=== PATIENT | female | born 1980 | race Caucasian/White ===

== ENCOUNTER 2019-10-23 08:45 | Outpatient (CLI) | payer OTHER, SELFPAY ==
[2019-10-23 09:17] LABS: Basophils Absolute Auto 0.1 K/mm3 (0.0-0.1); Basophils Percent Auto 0.5 % (0.2-1.2); Eosinophils Absolute Auto 0.1 K/mm3 (0-0.3); Eosinophils Percent Auto 0.6 % (0-4.4); Hematocrit 38.5 % (37.0-47.0); Hemoglobin 13.3 g/dL (12.0-15.0); Immature Granulocyte Absolute 0.04 K/mm3 (0.00-0.031); Immature Granulocyte Percent A 0.3 % (0-0.5); Lymphocytes Absolute Auto 1.26 K/mm3 (0.9-3.2); Mean Corpuscular HGB Conc 34.5 g/dl (32-36); Mean Corpuscular Hemoglobin 32.3 pg (26-34); Mean Corpuscular Volume 93.4 fl (80-100); Mean Platelet Volume 11.2 fl (7.4-10.4); Monocytes Absolute Auto 0.8 K/mm3 (0.1-0.6); Monocytes Percent Auto 6.3 % (2.6-8.5); Neutrophils Absolute Auto 10.3 K/mm3 (1.3-6.7); Neutrophils Percent Auto 82.3 % (45.5-73.1); Platelet Count Result 216 k/mm3 (150-375); Red Blood Count 4.12 M/mm3 (4.2-5.4); Red Cell Distribution Width 11.8 % (11.5-14.5); White Blood Count 12.5 K/mm3 (4.5-10.0)
[2019-10-23 09:22] LABS: Add Urine Microscopic? YES; Appearance Urine Cloudy (Clear); Bacteria Urine Trace /hpf; Bilirubin Urine Negative (Negative); Blood Urine 2+ (Negative); Color Urine Yellow (Yellow); Glucose Urine UA Negative (Negative); Ketones Urine Negative (Negative); Leukocyte Esterase Ur 3+ LEU/UL (Negative); Mucus Urine Rare /lpf; Nitrate Urine Negative (Negative); Protein Urine 1+ mg/dL (Negative); RBC Urine 51-75 /hpf (0-2); Squamous Epithelial Cell Urine Many /hpf (Few); Urobilinogen Urine Negative mg/dL (<2.0); WBC Urine >75 /hpf
[2019-10-23 09:28] LABS: Alanine Aminotransferase 14 U/L (4-35); Albumin Level 4.5 g/dL (3.5-5.1); Alkaline Phosphatase 49 U/L (38-126); Aspartate Amino Transferase 23 U/L (14-36); Bilirubin,Total 1.5 mg/dL (0.2-1.3); Blood Urea Nitrogen 8 mg/dL (7-17); Calcium 9.3 mg/dL (8.4-10.2); Carbon Dioxide 25 mmol/L (22-30); Chloride 104 mmol/L (98-107); Estimated Glomerular Filt Rate > 60; Glucose 106 mg/dL (65-105); Sodium 139 mmol/L (137-145)
[2019-10-23 09:45] LABS: Beta HCG Quantitative < 2.39 mIU/ML
== END 2019-10-23 08:46 | disposition home or self-care (01) ==
LOC: ANHLAB 08:48
PROVIDERS: PCP Internal Medicine; Visit Provider Internal Medicine
DX: R10.9 Unspecified abdominal pain (principal)
CPT/HCPCS: 36415; 80053; 81001; 84702; 85025; 87077; 87086; 87088; 87186

== ENCOUNTER 2020-02-05 07:30 | Outpatient (CLI) | payer OTHER, SELFPAY ==
[2020-02-05 08:12] LABS: Basophils Absolute Auto 0.1 K/mm3 (0.0-0.1); Eosinophils Absolute Auto 0.2 K/mm3 (0-0.3); Eosinophils Percent Auto 2.5 % (0-4.4); Hematocrit 40.8 % (37.0-47.0); Hemoglobin 13.9 g/dL (12.0-15.0); Immature Granulocyte Absolute 0.02 K/mm3 (0.00-0.031); Immature Granulocyte Percent A 0.3 % (0-0.5); Lymphocytes Absolute Auto 2.24 K/mm3 (0.9-3.2); Lymphocytes Percent Auto 37.3 % (18.3-44.2); Mean Corpuscular HGB Conc 34.1 g/dl (32-36); Mean Corpuscular Hemoglobin 31.2 pg (26-34); Mean Corpuscular Volume 91.7 fl (80-100); Mean Platelet Volume 10.7 fl (7.4-10.4); Monocytes Absolute Auto 0.5 K/mm3 (0.1-0.6); Monocytes Percent Auto 7.5 % (2.6-8.5); Neutrophils Absolute Auto 3.1 K/mm3 (1.3-6.7); Neutrophils Percent Auto 51.4 % (45.5-73.1); Platelet Count Result 237 k/mm3 (150-375); Red Blood Count 4.45 M/mm3 (4.2-5.4); Red Cell Distribution Width 11.9 % (11.5-14.5)
[2020-02-05 08:18] LABS: Add Urine Microscopic? YES; Appearance Urine Clear (Clear); Bacteria Urine Trace /hpf; Bilirubin Urine Negative (Negative); Blood Urine Negative (Negative); Color Urine Yellow (Yellow); Glucose Urine UA Negative (Negative); Ketones Urine Negative (Negative); Leukocyte Esterase Ur Trace LEU/UL (NEGATIVE); Mucus Urine Rare /lpf; Nitrate Urine Negative (Negative); Protein Urine Negative (Negative); RBC Urine 0-2 /hpf (0-2); Specific Grav Ur 1.012 (1.001-1.035); Squamous Epithelial Cell Urine Rare /hpf (Few); Transitional Epi Cells Urine Rare /hpf (None Seen); Urobilinogen Urine Negative mg/dL (<2.0)
[2020-02-05 08:30] LABS: Alanine Aminotransferase 13 U/L (4-35); Albumin Level 4.6 g/dL (3.5-5.1); Alkaline Phosphatase 37 U/L (38-126); Anion Gap 7 mmol/L (8-16); Aspartate Amino Transferase 22 U/L (14-36); Bilirubin,Total 1.2 mg/dL (0.2-1.3); Blood Urea Nitrogen 8 mg/dL (7-17); Calcium 9.3 mg/dL (8.4-10.2); Carbon Dioxide 27 mmol/L (22-30); Chloride 106 mmol/L (98-107); Cholesterol 147 mg/dL (0-200); Estimated Glomerular Filt Rate > 60; Glucose 100 mg/dL (65-105); HDL Direct 53 mg/dL; Potassium 4.5 mmol/L (3.4-5.0); Sodium 140 mmol/L (137-145); Triglycerides 54 mg/dL (<150)
[2020-02-05 08:41] LABS: LDL Cholesterol Direct 72 mg/dL
[2020-02-05 08:59] LABS: Thyroid Stimulating Hormone 0.587 uIU/mL (0.465-4.680)
[2020-02-05 12:33] LABS: Folic Acid 6.8 ng/mL (2.76->20)
== END 2020-02-05 07:31 | disposition home or self-care (01) ==
PROVIDERS: PCP Internal Medicine; Visit Provider Internal Medicine
DX: Z00.00 Encounter for general adult medical examination without abnormal findings (principal); R53.83 Other fatigue
CPT/HCPCS: 36415; 80053; 80061; 81001; 82607; 82746; 84443; 85025

== ENCOUNTER → 2021-04-19 01:29 | Outpatient (CLI) | payer OTHER, SELFPAY ==
[2021-04-20 13:55] LABS: SARS-CoV-2 RNA PCR Positive
== END ==
PROVIDERS: PCP Internal Medicine; Visit Provider Physician Assistant
DX: R68.89 Other general symptoms and signs (principal); Z20.822 Contact with and (suspected) exposure to COVID-19
CPT/HCPCS: C9803; U0003; U0005

== ENCOUNTER 2024-10-25 08:45 | Outpatient (CLI) | payer OTHER, SELFPAY ==
--- NOTE | ~2024-10-25 | MMUS_ITS ---
EXAMINATION: MM diag main implant BI w gloria, US breast RT limited HISTORY: Right breast mass TECHNIQUE: 3-D tomosynthesis images of the breasts were performed and synthetic 2-D images were gener ated. CAD analysis was submitted and interpreted. High resolution limited right breast ultrasound was performed. COMPARISON: None BREAST PARENCHYMAL COMPOSITION:Dense: The breasts are extremely dense, which lowers the sensitivity o f mammography. FINDINGS: MAMMOGRAPHIC FINDINGS: No distinct parenchymal abnormality seen mammographically. No mass lesion or distortion are evident. No suspicious microcalcification. ULTRASOUND: At the 7:00 position right breast, near the nipple, there is a 1.3 x 1.4 x 0.8 cm mildly irregular, w ider than tall hypoechoic solid mass. There is focal internal vascularity. IMPRESSION: 1.3 x 1.4 x 0.8 cm indeterminate mass at 7:00 position right breast near the nipple seen sonographic ally. Ultrasound-guided biopsy is recommended to establish a histologic diagnosis. BI-RADS category 4, suspicious findings. Reviewed, dictated and finalized at [facility]. IMPRESSION: 1.3 x 1.4 x 0.8 cm indeterminate mass at 7:00 position right breast near the n ipple seen sonographically. Ultrasound-guided biopsy is recommended to establis h a histologic diagnosis. BI-RADS category 4, suspicious findings.
--- OUTSIDE RECORDS SUMMARY | 2024-10-25 08:50 | XMS_ITS | Data Portability ---
Author Organization [facility] Address [address] [place] [address] [place] [address] Care Team Providers Care Pet Feeder Name Role Phone TAMERA MARIE Primary Care Provider Assessment Encounter Date Assessment Date Assessment LastModified by Organization Details LastModified Time 11/25/2022 11/25/2022 Annual gynecological exam performed. Patient will come back in a year unless there are new symptoms. [email or web address] Not available 11/25/2022 09:24:29 Plan of Treatment Reminders Order Date Submit Date Provider Last Modified By Organization Details Last Modified Time Details Appointments None recorded. Lab None recorded. Referral None recorded. Procedures None recorded. Surgeries None recorded. Imaging MAMMO, diagnostic , digital, bilateral - Right breast mass (1 cm) noted at 9 o'clock position near areola 2024 025 [facility], [address], [address], [place], [address], 5 04:11:56 MAMMO, screening, bilateral 2022 023 [facility], [address], [place], [address], 3 14:15:46 Medication Orders None recorded. Patient TargetsNo targets recorded. Patient InstructionsNo instructions recorded. Reason for Referral None Reported. Procedures Surgical History Date Name Laterality Status Provider Name and Address Organization Details Recorded Time 09/16/19 25 excision of melanoma completed CYNDI BLACKMAN NP [address] [place], [address], [facility] 10/15/2024 12:00:54 04/17/19 19 Date of Last Pap Smear completed Andria Parra [facility] 10/15/2024 11:07:28 04/17/19 16 excision of melanoma completed [facility] 11/25/2022 09:28:45 04/17/19 08 augmentation of bilateral breasts completed [facility] 11/25/2022 09:28:31 Imaging Results None recorded. Procedure Notes None recorded. Medical Equipment None Reported. Allergies Allergen ID Allergen Name Allergen Category Reaction Reaction Severity Criticality Documentation Date Start Date Code Code System Note Provider Name and Address Organization Details Recorded Time 03380 Non-stero idal anti-infl ammatory agent (product) medicatio n eye swelling severe Not available 11/25/20222005 33346 005 SNOMED Andria Parra abelardo [facility] 5 11:07:27 58049 lidocaine medicatio n Not available Not available Not available 11/25/20222015 6387 RxNorm Other react ions and sever ities : 'Itch ing - Moder ate', and 'Swel ling - Moder ate'. Andria Parra abelardo [facility] 5 11:07:27 Medications Name Sig Start Date Stop Date Status Note LastModified by Organization Details LastModified Time azithromyci n 250 mg tablet TAKE 2 TABLETS BY MOUTH DAILY FOR 1 DAY THEN TAKE 1 TABLET BY MOUTH DAILY FOR 4 DAYS 10/15 completed Not Available Not Available Not Available acetaminoph en 300 mg-codeine 30 mg tablet TAKE 1 TABLET BY MOUTH EVERY 8 HOURS NEEDED FOR PAIN 10/15 completed Not Available Not Available Not Available tretinoin 0.05 % topical cream 11/25 completed Not Available Not Available Not Available terbinafine HCl 250 mg tablet TAKE 1 TABLET BY MOUTH DAILY FOR 1 WEEK OF THE MONTH EVERY MONTH FOR 12 MONTHS active Not Available Not Available No t Available fluorometho lone 0.1 % eye drops,suspe nsion 11/25 completed Not Available Not Available Not Available azelastine 137 mcg (0.1 %) nasal spray USE 2 SPRAYS IN EACH NOSTRIL EVERY 12 HOURS REPLACING ASTEPRO 11/25 completed Not Available Not Available Not Available methylpredn isolone 4 mg tablets in a dose pack FOLLOW PACKAGE DIRECTION S 10/15 completed Not Available Not Available Not Available cyclobenzap rine 5 mg tablet TAKE 1 TABLET BY MOUTH THREE TIMES DAILY NEEDED FOR MUSCLE SPASM 10/15 completed Not Available Not Available Not Available 05/06 (28) 1 mg-20 mcg (21)/75 mg (7) tablet 11/25 completed Not Available Not Available Not Available Zyrtec active Not Available Not Availa ble Not Available Jublia 10 % topical solution with applicator APPLY TOPICALLY TO THE AFFECTED AREA DAILY active Not Available Not Available No t Available Vitals Date Recorded Body height Body mass index (BMI) Body weight Systolic And Diastolic Provider Name and Address Organization Details Last Updated DateTime 10/15/2024 177.8 cm 20.9 kg/m2 44167.77 g 127/82 mm[Hg] Andria Parra [facility] 10/15/2024 11:14:19 Date Recorded Body height Body mass index (BMI) Body weight Systolic And Diastolic Provider Name and Address Organization Details Last Updated DateTime 11/25/2022 177.8 cm 23 kg/m2 82510.78 g 102/62 mm[Hg] Shirlene Rogers [facility] 11/25/2022 09:24:39 Social History Question Answer Notes LastModified by Ortho[employer] Details LastModified Time Tobacco Smoking Status Never Smoker Shirlene Rogers [facility] 11/25/2022 09:28:15 Have You Ever Been Counseled For Unhealthy Alcohol Use? No Information not available 11/25/2022 Has Tobacco Cessation Counseling Been Provided? No Information not available 11/25/2022 Sex: Unknown Functional Status Question Answer Note LastModified by [employer] Details LastModified Time Do you use any illicit or recreational drugs? No Information not available 11/25/2022 Do you or have you ever used any other forms of tobacco or nicotine? No Information not available 11/25/2022 What is your level of alcohol consumption? Occasional Information not available 11/25/2022 Mental Status None recorded. Family History Relationship Description Onset Age of this Age Resolved Age Notes LastModified by Organization Details LastModified Time Maternal Grandmother Diabetes mellitus [email or web address] Not available 2024 11:07:27 Mother Malignant tumor of breast [email or web address] Not available 2024 11:07:28 Mother Malignant tumor of breast 54 56 [email or web address] Not available 2024 11:07:28 Sister Malignant tumor of cervix [email or web address] Not available 2024 11:07:28 Sister Disorder of nervous system 29 Not available 2024 11:07:28 Medical History Condition Response Cancer Y Gynecological History Statement/Question Response Abnormal Pap N Date of Last Mammogram Flow Heavy Date of LMP 10/03/2024 On BCP's at Conception? N Was last menstrual period normal Y STIs/STDs N HPV Vaccine N Duration of Flow (days) 4 Current Control Method None Age at First Child 28 Are cycles usually normal Y Frequency of Cycle (Q days) 29 Sexually Active? Y Menses Monthly Y Age of first menstrual cycle 17 Date of Last Pap Smear 04/17/2018 Sexual Problems? N LMP Definite N Obstetrics History GPAL:G 3 P 2 0 1 2 Type Value Full Term 2 Induced 1 Living 2 Total 3 Past Encounters Encounter ID Performer Location Encounter Start Date Encounter Closed Date Diagnosis/Indication Diagnosis SNOMED-CT Code Diagnosis ICD10 Code Diagnosis Note [id number] Lucretia Auguste [facility] [address] [address] 11/25/2022 09:17:31 11/25/2022 14:15:46 Gynecologic examination 11424561 Z01.419 Suggested Calcium with Vitamin D 1200-1500m g daily. Patient advised to get an annual flu shot in the fall and she could obtain at [facility] or [facility] clinic. Also to obtain TDap vaccinatio n if you have not had one in the last 10 years. Recommend yearly mammograms . Encouraged monthly self breast exams. Encourage safe sexual practices, to use condoms and limit partners if not already in a monogamous relationsh ip. Engage in daily exercise of low impact aerobic exercise 45-60 minutes 4-5 times weekly. Avoid tobacco and illicit drugs as well as using moderation with alcohol intake less than 1-2 8 oz beverages daily. This lifestyle behavior pattern will lead to less health conditions and longer life span. If BMI greater than 25 weight watchers or dietary consult advised. All questions have been answered. Patient appears to understand informatio n, but if you have any questions please call or respond to this email.Pap/ hpv sentSTD Screen sentGeneti c Screen discussed & informatio n given.[place] n Screen PCPDexa Screen naRoutine Labs PCPMammo-F amily Hx of breast cancer Screening mammography 24 902944 Z12.31 Consider genetic testing due to first line relative Hx breast cancer (Mother) [facility] [id number] Z30.9 Discussed all control options and pt would like mirena IUD. I have discussed in detail all risks and benefits including risk of infection and perforatio n. She understand s she will need to contact office with next menses or may abstain, complete serum HCG day before placement, if neg can have IUD placed next day. Aware of need to verify with insurance device coverage. Literature given. All questions answered to patient satisfacti on. Also discussed slYND/Nexp lanon/Depo .Informati on givenWill call if wants to pursue with next cycle. [id number] Justino Chand MD [facility] [address] [address] 10/15/2024 11:00:15 10/15/2024 12:05:25 Mass of right breast [id number] [id number] N63.10 We discussed her breast exam findings and pt is counseled. Questions answered.I maging: bilateral diagnostic mammogram ordered; patient to scheduleFH of breast cancer (mother - age 54); BRCA negative per ptPatient advised to perform self-breas t exams and report any changes.FU for [employer] [facility] Concerns Section Related Observation LastModified by Organization Detai ls LastModified Time None Recorded Concern Status LastModified by Organization Details LastModified Time None Recorded Advance Directives Directive None Recorded Payers Insurance Date Sequence Insurance Name Policy Number Policy Kearns Covered Member ID Kearns Member ID Guarantor Name 10/15/2024 1 [facility] [id number] Neelam Becerra [id number] Neelam Becerra 10/14/2024 1 [facility] [id number] Neelam Becerra [id number] Neelam Becerra Notes Date Note Type Note Provider Name and Address Organization Details Recorded Time 11/25/2022 text/html Annual GYNReport ed bypatient.History:no gynecologic complaints Menstrual cycle:Normal menses Urinary symptoms:No hematuria; No incontinence Vulva:No genital lesion Vagina:Normal vaginal discharge Breast:No breast pain; No breast lump; No nipple discharge Current Contraception:Condom s Sexual complaints:No sexual complaints; No pain during intercourse; Normal libido Menopausal Symptoms:No menopausal symptoms; Normal vaginal lubrication Psychological symptoms:No depression; No anxiety; No PMDD Preventive measures:Encourage self breast examination; Encourage regular exercise; Encourage no tobacco use; Encourage regular mammograms starting age 40; Followed with yearly pap smears; Needs to schedule mammogram DARREN Olguin-[facility] [address], [place], [address], [facility] 11/25/2022 14:05:23 10/15/2024 text/html 44 y/o female presents with c/o right breast lump that she noticed Monday.Patient states that the lump is right next to her areola.Patient denies current pain, but states that she had sharp bilateral breast pain a few months ago.Denies nipple discharge or skin changes of breasts.Reports that she recently had melanoma removed from her left thigh. breast cancer - mother diagnosed at age 54 (ductal)Patient states that she is BRCA negativeReports having breast implantsPatient reports that she has not had a mammogram before CYNDI BLACKMAN NP [address], [place], [address], [facility] 10/15/2024 12:05:12 OBGyn Episode Ob Episode Information Episode Created Date Number of Fetuses Patient Bloodtype Patient rh Status Prepregnancy Weight lbs Domestic Partner Domestic Partner Phone Father Name Drywall Taper Status 11/26/19 23 1 CLOSED Fetus Data First Name Last Name Admitted to NICU Weight (g) Sex Living Outcome Pediatric Complications Fetus ID Race Codes Race Delivery Type , Induced Donald Calculation Initial Donald Date Initial Exam Date Initial Exam Provider Initial Ultrasound Date Last Menstrual Period Date Ultra Sound Weeks Gestation 0 Eighteen To Twenty Week Donald Update Ultra Sound Date Fundal Height At Umbil Quickening Date Ultra Sound Latest Weeks Gestation Final Donald Confirmed By Final Donald Confirmed Date Final Donald Date Ultra Sound Latest Days Gestation 0 0 Menstrual History Last Menstrual Date Menses Monthly On Bcp Conception Prior Menses Frequency Hcg Plus Date Menarche Onset Age Delivery Information Delivery Date Delivery Type Labor Anesthesia Weeks Gestation Incision Type Labor Labor Length Hrs Delivered By Post Complications Tubal Sterilization Discharge Date Comments 6 Discharge Information Feeding Method Contraceptive Method Maternal HG B and HCT Levels Ob Episode Information Episode Created Date Number of Fetuses Patient Bloodtype Patient rh Status Prepregnancy Weight lbs Domestic Partner Domestic Partner Phone Father Name Drywall Taper Status 11/26/19 23 1 CLOSED Fetus Data First Name Last Name Admitted to NICU Weight (g) Sex Living Outcome Pediatric Complications Fetus ID Race Codes Race Delivery Type 4535.92 M Full Term [id number] Vaginal Delivery Donald Calculation Initial Donald Date Initial Exam Date Initial Exam Provider Initial Ultrasound Date Last Menstrual Period Date Ultra Sound Weeks Gestation 0 Eighteen To Twenty Week Donald Update Ultra Sound Date Fundal Height At Umbil Quickening Date Ultra Sound Latest Weeks Gestation Final Donald Confirmed By Final Donald Confirmed Date Final Donald Date Ultra Sound Latest Days Gestation 0 0 Menstrual History Last Menstrual Date Menses Monthly On Bcp Conception Prior Menses Frequency Hcg Plus Date Menarche Onset Age Delivery Information Delivery Date Delivery Type Labor Anesthesia Weeks Gestation Incision Type Labor Labor Length Hrs Delivered By Post Complications Tubal Sterilization Discharge Date Comments 0 39 Discharge Information Feeding Method Contraceptive Method Maternal HG B and HCT Levels Ob Episode Information Episode Created Date Number of Fetuses Patient Bloodtype Patient rh Status Prepregnancy Weight lbs Domestic Partner Domestic Partner Phone Father Name Drywall Taper Status 11/26/19 23 1 CLOSED Fetus Data First Name Last Name Admitted to NICU Weight (g) Sex Living Outcome Pediatric Complications Fetus ID Race Codes Race Delivery Type 3175.14 4 M Full Term [id number] Vaginal Delivery Donald Calculation Initial Dnoald Date Initial Exam Date Initial Exam Provider Initial Ultrasound Date Last Menstrual Period Date Ultra Sound Weeks Gestation 0 Eighteen To Twenty Week Donald Update Ultra Sound Date Fundal Height At Umbil Quickening Date Ultra Sound Latest Weeks Gestation Final Donald Confirmed By Final Donadl Confirmed Date Final Donald Date Ultra Sound Latest Days Gestation 0 0 Menstrual History Last Menstrual Date Menses Monthly On Bcp Conception Prior Menses Frequency Hcg Plus Date Menarche Onset Age Delivery Information Delivery Date Delivery Type Labor Anesthesia Weeks Gestation Incision Type Labor Labor Length Hrs Delivered By Post Complications Tubal Sterilization Discharge Date Comments 3 37 Discharge Information Feeding Method Contraceptive Method Maternal HG B and HCT Levels
--- OUTSIDE RECORDS SUMMARY | 2024-10-25 08:50 | XMS_ITS | Clinical Summary ---
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 Gender Identity Not on file Sexual Orientation Not on file Plan of Treatment Health Maintenance Due Date Last Done Comments DTAP/TDAP/TD VACCINES (1 - Tdap) 2000 HEPATITIS B VACCINES (1 of 3 - 19+ 3-dose series) 2000 HPV/Cotest (21-29) 2002 CERVICAL CANCER SCREENING 09/25/2011 HPV/Cotest (30-65) 09/25/2011 PAP SMEAR 09/25/2011 BREAST CANCER SCREENING 2021 INFLUENZA VACCINE (#1) 2024 HPV VACCINES Aged Out No longer eligi ble based on patient's age to complete this topic [place] [address] [place] [id number] Care Teams Watermaster Relationship Specialty Start Date End Date Marcos DO Vahid [address] [facility] [address] [place] [address] PCP - General Internal Medicine 02/14/12
== END 2024-10-25 08:46 | disposition home or self-care (01) ==
LOC: CHSIMG 08:47
PROVIDERS: PCP Internal Medicine; Visit Provider Student in an Organized Health Care Education/Training Program
DX: N63.10 Unspecified lump in the right breast, unspecified quadrant (principal); R92.8 Other abnormal and inconclusive findings on diagnostic imaging of breast
CPT/HCPCS: 76642; 77062; 77066; G0279

== ENCOUNTER 2024-11-05 07:25 | Outpatient (CLI) | payer OTHER, SELFPAY ==
--- NOTE | ~2024-11-05 | MMUS_ITS ---
PROCEDURE: US breast biopsy RT w image, MM post biopsy diagnostic RT CLINICAL HISTORY: 44-year-old female weight indeterminate mass at 7:00 position in the right breast w ho presents for ultrasound-guided core needle biopsy procedure. COMPARISON: 10/25/2024 Following informed consent including risks, benefits, and possible complications, the patient was bro ught to the ultrasound suite. A time-out procedure was performed. A preliminary ultrasound of the ri t breast was performed, redemonstrating solid hypoechoic mass at 7:00, near the nipple. The patient was prepped and draped in the usual sterile fashion. 1% lidocaine was instilled into the subcutaneous tissues. 1% lidocaine with epinephrine was injected into the deep tissues just inferior to the lesion. Approximately 15cc lidocaine was administered. A small skin juliann was made. Multiple co re samples were obtained with a 14-gauge multi pass biopsy needle. A post biopsy metal marker was ntaalia rené at the biopsy site. Postprocedural mammogram of the right breast in craniocaudal and mediolateral projections reveal the post biopsy metal marker in good position. The patient tolerated the procedure well and was without i mmediate postprocedural complications. IMPRESSION: Successful ultrasound guided biopsy of right breast mass. A post biopsy metal marker was placed at the biopsy site, which is seen on postprocedural mammogram. The patient tolerated the procedure well without immediate postprocedure complications. The patient w as given postprocedural instructions and sent home in stable condition. Reviewed, dictated and finalized at location B. IMPRESSION: Successful ultrasound guided biopsy of right breast mass. A post bi opsy metal marker was placed at the biopsy site, which is seen on postprocedura l mammogram. The patient tolerated the procedure well without immediate postprocedure compli cations. The patient was given postprocedural instructions and sent home in sta ble condition.
--- OUTSIDE RECORDS SUMMARY | 2024-11-05 07:28 | XMS_ITS | Clinical Summary ---
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 Gender Identity Not on file Sexual Orientation Not on file Plan of Treatment Health Maintenance Due Date Last Done Comments HPV VACCINES (1 - 3-dose series) 1996 DTAP/TDAP/TD VACCINES (1 - Tdap) 2000 HEPATITIS B VACCINES (1 of 3 - 19+ 3-dose series) 09/15 HPV/Cotest (21-29) 2002 CERVICAL CANCER SCREENING 09/25/2011 HPV/Cotest (30-65) 09/25/2011 PAP SMEAR 09/25/2011 BREAST CANCER SCREENING 2021 INFLUENZA VACCINE (#1) 2024 Insurance Care Teams Oceanic Sciences Professor Relationship Specialty Start Date End Date Vaihd Rodríguez DO [address] [facility] [address] [place] [address] PCP - General Internal Medicine 02/14/12
--- OUTSIDE RECORDS SUMMARY | 2024-11-05 07:28 | XMS_ITS | Data Portability ---
Author Organization [facility] [place] Address [address] [place] [address] [place] [address] Care Team Providers Care Treatment Supervisor Name Role Phone TAMERA MARIE Primary Care [...] 9 o'clock position near areola 2024 025 [facility], [address], [address], [place], [address], 5 13:05:10 MAMMO, screening, bilateral 2022 023 [email or web address] [facility], [address], [place], [address], 3 14:15:46 Medication Orders None recorded. Patient TargetsNo targets recorded. Patient InstructionsNo instructions recorded. Reason for Referral None Reported. Results Created Date Observation Date Name Description Value Unit Range Abnormal Flag Note LastModifiedBy Organization Detail LastModifiedTime 10/26/19 25 10/25/2024 MAMMO , diagn ostic , digit al, bilat eral No observ ation record ed. [email or web address] [facility] [address], [place], [address], 10/29/2024 09:46:03 Result Notes None recorded. Procedures Surgical History Date Name Laterality Status Provider Name and Address Organization Details Recorded Time 09/16/19 25 excision of melanoma completed CYNDI BLACKMAN NP [address], [place], [address], [facility] 10/15/2024 12:00:54 04/17/19 19 Date of Last Pap Smear completed [facility] 10/15/2024 11:07:28 04/17/19 16 excision of melanoma completed [facility] 11/25/2022 09:28:45 04/17/19 08 augmentation of bilateral breasts completed [facility] 11/25/2022 09:28:31 Imaging Results None recorded. Procedure Notes None recorded. Medical Equipment None Reported. Allergies Allergen ID Allergen Name Allergen Category Reaction Reaction Severity Criticality Documentation Date Start Date Code Code System Note Provider Name and Address Organization Details Recorded Time 58985 Non-stero idal anti-infl ammatory agent (product) medicatio n eye swelling severe Not available 11/25/20222005 09178 005 SNOMED Andria zhou [facility] 5 11:07:27 18949 lidocaine medicatio n Not available Not available Not available 11/25/20222015 6387 RxNorm Other react ions and sever ities : 'Itch ing - Moder ate', and 'Swel ling - Moder ate'. Andria zhou [facility] 5 11:07:27 Medications Name Sig Start [...] Updated DateTime 10/15/2024 177.8 cm 20.9 kg/m2 90909.77 g 127/82 mm[Hg] Andria Parra [facility] 10/15/2024 11:14:19 Date Recorded Body height Body mass index (BMI) Body weight Systolic And Diastolic Provider Name and Address Organization Details Last Updated DateTime 11/25/2022 177.8 cm 23 kg/m2 56329.78 g 102/62 mm[Hg] Shirlene Rogers [facility] 11/25/2022 09:24:39 Social History Question Answer Notes LastModified by Organizat ion Details LastModified Time Tobacco Smoking Status Never Smoker Shirlene Rogers [facility], [facility] 11/25/2022 09:28:15 Have You Ever Been Counseled For Unhealthy Alcohol Use? No Information not available 11/25/2022 Has Tobacco Cessation Counseling Been Provided? No Information not available 11/25/2022 Sex: Unknown Functional Status Question Answer Note LastModified by Organizat ion Details LastModified Time Do you use any [...] Details LastModified Time Maternal Grandmother Diabetes mellitus [email or web address] Not available 2024 11:07:27 Mother Malignant tumor of breast [email or web address] Not available 2024 11:07:28 Mother Malignant tumor of breast 54 56 [email or web address] Not available 2024 11:07:28 Sister Malignant tumor of cervix Not available 2024 11:07:28 Sister Disorder of nervous system 29 [id number] Not available 2024 11:07:28 Medical History Condition [...] SNOMED-CT Code Diagnosis ICD10 Code Diagnosis Note [id number] [facility] [address] [address] 11/25/2022 09:17:31 11/25/2022 14:15:46 Gynecologic examination [id number] Z01.419 Suggested Calcium with Vitamin D 1200-1500m g daily. Patient advised to get an annual flu shot in the fall and she could obtain at [facility] or [facility] clinic. Also to obtain TDap vaccinatio n [...] sentGeneti c Screen discussed & informatio n given.Lamar n Screen PCPDexa Screen naRoutine Labs PCPMammo-F annyy Hx of breast cancer Screening mammography 24 448074 Z12.31 Consider genetic testing due to first line relative Hx breast cancer (Mother) [facility] 079289882 Z30.9 Discussed all control options and pt [...] if wants to pursue with next cycle. [id number] Justino Chand MD [place] [address] [address] 10/15/2024 11:00:15 10/15/2024 12:05:25 Mass of right breast [id number] N63.10 We discussed her breast exam findings [...] [place] Member ID Guarantor Name 10/15/2024 1 [facility] [id number] Neelam Becerra [id number] Neelam Becerra 10/14/2024 1 [facility] [id number] Neelam Becerra [id number] Neelam Becerra Notes Date Note Type Note [...] yearly pap smears; Needs to schedule mammogram Lucretia Auguste, [facility]- [address], [place], [address], [facility] 11/25/2022 14:05:23 10/15/2024 text/html 44 y/o female presents with c/o right breast lump that she noticed Monday.Patient states that the lump is right next to her areola.Patient denies current pain, but states that she had sharp bilateral breast pain a few months ago.Denies nipple discharge or skin changes of breasts.Reports that she recently had melanoma removed from her left thigh.FH breast cancer - mother diagnosed at age 54 (ductal)Patient states that she is BRCA negativeReports having breast implantsPatient reports that she has not had a mammogram before CYNDI BLACKMAN, JOON [address], [place], [address], [facility] 10/15/2024 12:05:12 OBGyn Episode Ob Episode Information Episode Created Date Number of Fetuses Patient Bloodtype Patient rh Status Prepregnancy Weight lbs Domestic Partner Domestic Partner Phone Father Name Seed Trucker Status 11/26/19 23 1 CLOSED Fetus Data [...] Domestic Partner Domestic Partner Phone Father Name Seed Trucker Status 11/26/19 23 1 CLOSED Fetus Data First Name Last Name Admitted to NICU Weight (g) Sex Living Outcome Pediatric Complications Fetus ID Race Codes Race Delivery Type 4535.92 M Full Term 15394 Vaginal Delivery Donald Calculation Initial Donald Date [...] Domestic Partner Domestic Partner Phone Father Name Seed Trucker Status 11/26/19 23 1 CLOSED Fetus Data First Name Last Name Admitted to NICU Weight (g) Sex Living Outcome Pediatric Complications Fetus ID Race Codes Race Delivery Type 3175.14 4 M Full Term 48135 Vaginal Delivery Donald Calculation Initial Donald Date [...]
--- NOTE | 2024-11-05 08:08 | S_PTH ---
PATIENT: Neelam Becerra LOC: [facility] U#:[id number] AGE/SX: 44/F ROOM: RE11/05/[address]: Raegan Cowan MD : 1980 BED: DIS: 11/05/2024 SPEC #: [id number] RECD: 11/05/24 11:35 STATUS: MARIA A REQ #: [id number] JAMILAH: 11/05/24 08:[address]: Raegan Cowan DEPT: [facility] Surgical RECD BY: Salome Coelho ENTERED: 11/05/24 11:35 SP TYPE: Surgical OTHR DR: Vahid Rodríguez, DO Tissues: A - Breast Biopsy Procedures: Hematoxylin and Eosin Stain Gross and Microscopic Level 4 ER-60 SC-60 MIB-60 HER 2-60
== END 2024-11-05 07:26 | disposition home or self-care (01) ==
PROVIDERS: PCP Internal Medicine; Visit Provider Surgery
DX: C50.511 Malignant neoplasm of lower-outer quadrant of right female breast (principal)
CPT/HCPCS: 19083; 77065; 88305; 88360; A4648